=== PATIENT | male | born 1990 | race Caucasian/White ===

== ENCOUNTER 2017-06-14 15:44 | Emergency (ER) | payer SELFPAY ==
--- NOTE | ~2017-06-14 | EKG ---
PATIENT: LEXA HARPER UNIT #: [id number] Ventricular Rate: 110 BPM Atrial Rate: 110 BPM P-R Interval: 146 ms QRS Duration: 92 ms Q-T Interval: 320 ms QTC Calculation(Bezet): 433 ms P [place]: 60 degrees Calculated R [place]: 80 degrees Calculated T [place]: 22 degrees Diagnosis Line: Sinus tachycardia Diagnosis Line: Otherwise normal ECG Diagnosis Line: No previous ECGs available Diagnosis Line: Confirmed by JUMANA CHAUDHARI MD ([id number]) on Diagnosis Line: 06/18/2017 10:40:45 AM INTERPRETING MD: FARA WARREN
[~2017-06-14 15:44] MED LIST: DARVOCET-N 1001 TAB PO; DICLOFENAC PO; FLEXERIL10 MG PO; IBUPROFEN PO; IBUPROFEN800 MG PO; NO MEDICATIONS; ROBITUSSIN15 MG/5 ML PO; TAMIFLU75 M1 PO; VICODIN 5/1 TAB 5/50 PO
[2017-06-14 16:23] LABS: POC - CKMB 4.3 ng/mL (0.0-7.9); POC - MYOGLOBIN >500.0 ng/mL (0.0-169.0)
[2017-06-14 16:24] LABS: POC - TROPONIN <0.05 ng/mL (<=0.05)
[2017-06-14 16:28] LABS: BASOPHIL# 0.1 X10e3 (0-0.3); BASOPHIL% 0.6 % (0-2.5); EOSINOPHIL# 0.1 X10e3 (0-0.7); EOSINOPHIL% 0.6 % (0.0-7.0); HEMATOCRIT 47.9 % (38.0-50.0); HEMOGLOBIN 16.6 gm/dL (13.0-16.0); LYMPHOCYTE# 2.5 X10e3 (1.0-3.5); LYMPHOCYTE% 26.8 % (17.0-45.0); MEAN CELL VOLUME 87.4 FL (83-96); MEAN CORPUSCULAR HEMOGLOBIN 30.3 PG (28-34); MEAN CORPUSCULAR HGB CONC 34.6 g/dL (30-36); MEAN PLATELET VOLUME 7.8 FL (6.5-11.5); MONOCYTE# 0.5 X10e3 (0-1.0); MONOCYTE% 5.7 % (3.0-12.0); NEUTROPHIL# 6.3 X10e3 (1.5-7.1); NEUTROPHIL% 66.3 % (40-75); PLATELET COUNT 282 X10e3 (140-420); RED BLOOD COUNT 5.49 X10e (3.90-5.60); RED CELL DISTRIBUTION WIDTH 13.6 % (11.0-15.5); WHITE BLOOD COUNT 9.5 X10e3 (4.0-10.5)
[2017-06-14 16:30] LABS: DIFF IND NO
[2017-06-14 16:50] LABS: ALBUMIN SERUM 5.1 g/dL (3.5-5.0); ALKALINE PHOSPHATASE 88 U/L (32-92); ALT (SGPT) 37 U/L (10-40); AST (SGOT) 62 U/L (10-42); BILIRUBIN, DIRECT 0.2 mg/dL (0.0-0.2); BILIRUBIN,INDIRECT 0.8 mg/dL (0.0-0.9); BLOOD UREA NITROGEN 20 mg/dL (9-23); BUN/CREATININE RATIO 11.76; CALCIUM SERUM 10.5 mg/dL (8.4-10.2); CARBON DIOXIDE 22 mmol/L (22-31); CHLORIDE 101 mmol/L (100-111); CREATININE SERUM 1.7 mg/dL (0.6-1.4); GLOM FILT RATE Estimated 54.1 mL/min (>60); GLUCOSE FASTING 98 mg/dL (70-110); POTASSIUM 3.9 mmol/L (3.5-5.1); PROTEIN TOTAL SERUM 8.9 g/dL (6.0-8.3); SODIUM 141 mmol/L (135-145)
[2017-06-14 17:07] LABS: ALCOHOL BLOOD <5 mg/dL ([, 0])
== END 2017-06-14 18:39 | disposition home or self-care (01) ==
LOC: SED 15:44
PROVIDERS: Student in an Organized Health Care Education/Training Program
DX: F15.10 Other stimulant abuse, uncomplicated (principal); F11.10 Opioid abuse, uncomplicated; E86.0 Dehydration; F17.210 Nicotine dependence, cigarettes, uncomplicated
CPT/HCPCS: 36415; 80048; 80076; 82550; 82553; 83874; 84484; 85025; 93005; 96361; 96374; 96375; 99284; G0480; J2060; J2405